=== PATIENT | female | born 1985 | race Caucasian/White ===

== ENCOUNTER 2018-06-08 10:58 | Emergency (ER) | payer OTHER ==
[~2018-06-08] VITALS: Ht 175.3 cm; Wt 102.2 kg
[2018-06-08 12:44] LABS: UA SPECIFIC GRAVITY 1.015 (1.005-1.035); microscopic required? YES; urine erythrocyte 1+ (NEGATIVE)
[2018-06-08 12:46] LABS: BASOPHIL % 0.2 % (0-2); PLATELET COUNT 237 x10^3mcL (130-400)
[2018-06-08 12:52] LABS: RED CELL DISTRIBUTION WIDTH 15.9 % (11.5-14.5)
[2018-06-08 12:56] LABS: CARBON DIOXIDE 28.8 mmol/L (21-32); CHLORIDE SERUM 103 mmol/L (98-107); CREATININE SERUM 0.6 mg/dL (0.6-1.0); GFR1 > 60 mL/min; GLUCOSE SERUM 98 mg/dL (74-106); POTASSIUM SERUM 3.5 mmol/L (3.5-5.1); SODIUM SERUM 140 mmol/L (136-145)
[2018-06-08 13:00] LABS: AMPHETAMINE QUAL UR POSITIVE (See below)
[2018-06-08 13:09] LABS: ALKALINE PHOSPHATASE 85 U/L (46-116); ALT/SGPT 19 U/L (14-59); AMYLASE 61 U/L (25-115); AST/SGOT 14 U/L (15-37); BILIRUBIN TOTAL 0.82 mg/dL (0.20-1.00); LIPASE 159 IU/L (73-393); T4(THYROXINE) 4.7 ug/dL (4.7-13.3)
[2018-06-08 13:13] LABS: ALBUMIN 2.9 g/dL (3.4-5.0); CHOLESTEROL 126 mg/dL (<200)
[2018-06-08 15:21] VITALS: BP 107/77
== END 2018-06-08 15:21 | disposition home or self-care (01) ==
LOC: ED 10:58
PROVIDERS: Emergency Medicine
DX: N39.0 Urinary tract infection, site not specified (principal)
CPT/HCPCS: 82962; 83880; J7030

== ENCOUNTER 2019-01-29 19:30 | Emergency (ER) | payer OTHER ==
[~2019-01-29] VITALS: Ht 175.3 cm; Wt 113.9 kg
[2019-01-29 20:09] VITALS: BP 130/75; Ht 175.3 cm; Wt 113.9 kg
[2019-01-29 20:28] LABS: BASOPHIL % 0.3 % (0-2); PLATELET COUNT 331 x10^3mcL (130-400)
[2019-01-29 20:29] LABS: RED CELL DISTRIBUTION WIDTH 16.1 % (11.5-14.5)
== END 2019-01-29 21:46 | disposition left against medical advice (07) ==
LOC: ED 19:30
PROVIDERS: Emergency Medicine
DX: Z53.21 Procedure and treatment not carried out due to patient leaving prior to being seen by health care provider (principal)

== ENCOUNTER 2019-11-08 19:43 | Emergency (ER) | payer OTHER ==
[~2019-11-08] VITALS: Ht 175.3 cm; Wt 108.9 kg
[2019-11-08 20:04] VITALS: Ht 175.3 cm; Wt 108.9 kg
[2019-11-08 22:30] VITALS: BP 128/79
== END 2019-11-08 22:30 | disposition home or self-care (01) ==
LOC: ED 19:43
DX: L03.211 Cellulitis of face (principal); Z98.890 Other specified postprocedural states
CPT/HCPCS: J1885; Q0162

== ENCOUNTER 2020-08-08 05:22 | Emergency (ER) | payer OTHER ==
[~2020-08-08] VITALS: Ht 175.3 cm; Wt 129.5 kg
[2020-08-08 05:30] VITALS: Ht 175.3 cm; Wt 129.5 kg
[2020-08-08 06:59] LABS: microscopic required? NO
[2020-08-08 07:33] VITALS: BP 121/72
[2020-08-08 07:35] LABS: urine erythrocyte NEGATIVE (NEGATIVE)
== END 2020-08-08 08:11 | disposition home or self-care (01) ==
LOC: ED 05:22
PROVIDERS: Emergency Medicine
DX: O12.02 Gestational edema, second trimester (principal); Z3A.15 15 weeks gestation of pregnancy
CPT/HCPCS: Q0092